=== PATIENT | female | born 1985 | race Caucasian/White ===

== ENCOUNTER 2022-01-30 10:30 | Inpatient (IN) ==
[~2022-01-30 10:30] MED LIST: Buffered Lidocaine 1% SYRIN 1 ml INTRADERM ONE; Lactated Ringers 1000 ml BAG 1,000 ML IV SCH
[2022-01-30] MEDS ORDERED: ceFAZolin 2 GM PREMIX 2 GM/50 ML BAG ONE (11:18)
[2022-01-30] MEDS ORDERED: ceFAZolin 1 GM in Dextrose 1 GM/50 ML BAG ONE (11:18)
[2022-01-30] MEDS ORDERED: Heparin 5000 UNITS/ML 1 mL VIAL ONE (11:18)
[2022-01-30] MEDS ORDERED: Dexamethasone IV 4 MG/ML VIAL 1 ml VIAL ONE (11:46)
[2022-01-30] MEDS ORDERED: Lidocaine 2% PF 5 ML VIAL ONE (11:46)
[2022-01-30] MEDS ORDERED: Propofol 10 MG/ML 20 ML BTL ONE (11:46)
[2022-01-30] MEDS ORDERED: Ondansetron 4 mg VIAL 2 MG/ML 2 ml VIAL ONE (11:46)
[2022-01-30] MEDS ORDERED: fentaNYL 100 mcg/2 ml 50 MCG/ML VIAL ONE ×2 (11:47→16:06)
[2022-01-30] MEDS ORDERED: Rocuronium 50 mg VIAL 10 mg/ml 5 ml VIAL (50 mg) ONE ×2 (11:47→14:28)
[2022-01-30] MEDS ORDERED: Midazolam 2 mg/2 ml VIAL 1 mg/ml 2 ml VIAL (2 mg) ONE (11:47)
[2022-01-30] MEDS ORDERED: Scopolamine 1 mg/72hr PATCH ONE (12:17)
[2022-01-30] MEDS ORDERED: Naloxone 0.4 mg VIAL 0.4 mg/ml 1 ml VIAL IV PRN (12:20)
[2022-01-30] MEDS ORDERED: Methylene Blue 0.5 % 50 MG/10 ML AMP IV ONE (12:48)
[2022-01-30] MEDS ORDERED: Bupivacaine 0.25% EPI 200,000 30 ML SDV ONE (12:48)
[2022-01-30] MEDS ORDERED: Scopolamine 1 mg/72hr PATCH TRANSDERM SCH (13:00)
[2022-01-30] MEDS ORDERED: Acetaminophen IV 1 GM/100ML 1,000 MG/100 ML BAG IV ONE (14:21)
[2022-01-30] MEDS ORDERED: HYDROmorphone 0.5 MG/0.5 ML SYRINGE IV SLOW PU PRN (16:58)
[2022-01-30] MEDS ORDERED: HYDROmorphone 1 MG/1 ML SYRINGE IV SLOW PU PRN (16:58)
[2022-01-30] MEDS ORDERED: HYDROcodone/ACET. 7.5/325 LIQ 15 ML UDC PO PRN (16:58)
[2022-01-30] MEDS ORDERED: Acetaminophen IV 1 GM/100ML 1,000 MG/100 ML BAG IV PRN (16:58)
[2022-01-30] MEDS ORDERED: HYDROmorphone 1 MG/1 ML SYRINGE ONE ×2 (17:02→17:06)
[2022-01-30] MEDS: HYDROmorphone 1 MG/1 ML SYRINGE IV PRN ×3 (17:03→17:38)
[2022-01-30] MEDS: Ondansetron 4 mg VIAL 2 MG/ML 2 ml VIAL IV PRN (18:25)
[2022-01-30] MEDS: Lactated Ringers 1000 ml BAG 1,000 ML IV SCH (18:28)
[2022-01-30] MEDS: Famotidine IV 10 MG/ML 2 ml VIAL (20 mg) IV SLOW PU SCH (20:23)
[2022-01-30] MEDS ORDERED: Metoclopramide 5 MG/ML VIAL (10 mg) IV PRN (22:46)
[2022-01-30] MEDS: Heparin 5000 UNITS/ML 1 mL VIAL SUBCUT SCH (22:50)
[2022-01-31] MEDS: Lactated Ringers 1000 ml BAG 1,000 ML IV SCH ×2 (03:42→10:10)
[2022-01-31] MEDS: Heparin 5000 UNITS/ML 1 mL VIAL SUBCUT SCH ×2 (06:06→14:23)
[2022-01-31] MEDS: Ondansetron 4 mg VIAL 2 MG/ML 2 ml VIAL IV PRN (06:07)
[2022-01-31] MEDS: Famotidine IV 10 MG/ML 2 ml VIAL (20 mg) IV SLOW PU SCH (08:59)
[2022-01-31 12:04] VITALS: BP 122/70
[2022-01-31] MEDS ORDERED: D5W 1/2 NS KCl 20 meq 1000 ml 1,000 ML IV SCH (17:00)
== END 2022-01-31 14:45 | disposition home or self-care (01) | DRG 403 ==
LOC: AA 10:53 → SSU 18:04
PROVIDERS: ADMIT Surgery; ATTEND Surgery